=== PATIENT | male | born 1955 | race Caucasian/White ===

== ENCOUNTER 2017-04-11 | Inpatient (IN) | payer OTHER, MEDICAID ==
[2017-04-11] VITALS (7 sets, daily range): BP systolic 111–146
[~2017-04-11] VITALS: Ht 175.3 cm; Wt 70.8 kg
[2017-04-11] MEDS ORDERED: NACL 0.9% 1,000 ML IV ONE (00:18)
[2017-04-11 01:35] LABS: EOSINOPHILS # (AUTO) 0.3 K/uL (0.0-0.4); HEMOGLOBIN 9.7 g/dL (14.0-18.0); LYMPHOCYTES # (AUTO) 0.9 K/uL (1.0-5.5)
[2017-04-11 01:42] LABS: CALCIUM 8.7 mg/dL (8.4-11.0); CREATININE 1.88 mg/dL (0.55-1.30); POTASSIUM 3.4 mmol/L (3.5-5.1)
[2017-04-11 01:45] LABS: INR 1.2 (0.80-1.20); PROTHROMBIN TIME 12.6 SECS (9.5-12.5)
[2017-04-11 01:47] LABS: ALBUMIN 2.2 g/dL (3.4-4.8); TOTAL BILIRUBIN 0.9 mg/dL (0.0-1.0)
[2017-04-11 01:48] LABS: BASOPHILS % (AUTO) 0.2 % (0.0-2.0); HEMATOCRIT 28.5 % (36-54); LYMPHOCYTES % (AUTO) 6.1 % (20.5-51.5); MEAN CORPUSCULAR HEMOGLOBIN 32 pg (27-31); MEAN CORPUSCULAR HGB CONC 34 % (32-36); MEAN CORPUSCULAR VOLUME 95 fL (79.0-98.0); NEUTROPHILS # (AUTO) 12.2 K/uL (1.8-7.7); NEUTROPHILS % (AUTO) 78.7 % (40.0-70.0); PLATELET COUNT (AUTO) 152 K/uL (130-430); RED BLOOD CELL COUNT(AUTO) 3.01 MIL/uL (4.2-6.2); WHITE BLOOD COUNT (AUTO) 15.4 K/uL (4.8-10.8)
[2017-04-11] MEDS ORDERED: HYDROmorphone 1 MG INJ. 1 MG/ML AMPUL IVP ONE (02:15)
[2017-04-11 03:24] LABS: BILIRUBIN,URINE 1+ (NEGATIVE); BLOOD, URINE 3+ (NEGATIVE); CLARITY/URINE CLOUDY (CLEAR); COLOR,URINE YELLOW (YELLOW); GLUCOSE,URINE NEGATIVE (NEGATIVE); KETONES,URINE 1+ (NEGATIVE); LEUKOCYTE ESTERASE ,URINE 3+ (NEGATIVE); NITRITE, URINE POSITIVE (NEGATIVE); PROTEIN URINE 2+ (NEGATIVE)
[2017-04-11] MEDS ORDERED: ACETAMINOPHEN 325 MG TABLET PO PRN (03:30)
[2017-04-11 03:32] LABS: BACTERIA,URINE MANY /HPF (None Seen); WBC,URINE >100 /HPF (0-3)
[2017-04-11] MEDS ORDERED: DIPH25CA83 PO (07:01)
[2017-04-11] MEDS ORDERED: PRO20 PO (07:01)
[2017-04-11] MEDS ORDERED: ASPI-1063 PO (07:01)
[2017-04-11] MEDS ORDERED: QUET200T30 PO (07:01)
[2017-04-11] MEDS ORDERED: QUET200T5 PO (07:01)
[2017-04-11] MEDS ORDERED: OMEP20CA10 PO (07:01)
[2017-04-11] MEDS ORDERED: DOCU-144 PO (07:01)
[2017-04-11] MEDS ORDERED: DIVA250T34 PO (07:01)
[2017-04-11] MEDS ORDERED: TAMS0.4C96 PO (07:01)
[2017-04-11] MEDS ORDERED: [UNRECOGNIZED DRUG - CODE] PO (07:01)
[2017-04-11] MEDS ORDERED: TEMA30CA5 PO (07:01)
[2017-04-11] MEDS ORDERED: MONT10TA25 PO (07:01)
[2017-04-11] MEDS ORDERED: DIVALPROEX SODIUM 250 MG TABLET(DEPAKOTE) PO SCH (10:45)
[2017-04-11] MEDS ORDERED: LEVOFLOXACIN 500 MG/D5W 100 ML IV ONE (11:00)
[2017-04-11] MEDS: HYDROmorphone 1 MG INJ. 1 MG/ML AMPUL IVP PRN (11:10)
[2017-04-11] MEDS ORDERED: GENTAMICIN 100 mg/50 mL NS 50 ML IV ONE (11:30)
[2017-04-11] MEDS: LR 1,000 ML IV SCH ×2 (12:05→22:15)
[2017-04-11] MEDS ORDERED: OMEPRAZOLE 20 MG CAPSULE.DR (PriLOSEC) PO ONE (13:00)
[2017-04-11] MEDS ORDERED: DOCUSATE SODIUM 100 MG CAPSULE PO PRN (13:00)
[2017-04-11] MEDS ORDERED: MONTELUKAST 10 MG TABLET PO ONE (13:00)
[2017-04-11] MEDS ORDERED: FLUoxetine HCL 10 MG CAPSULE (PROzac) PO ONE (13:00)
[2017-04-11] MEDS ORDERED: DIVALPROEX SODIUM 250 MG TABLET(DEPAKOTE) PO ONE (13:00)
[2017-04-11] MEDS ORDERED: TAMSULOSIN HCL 0.4 MG CAP PO ONE (13:15)
[2017-04-11] MEDS: DOCUSATE SODIUM 100 MG CAPSULE PO SCH (13:17)
[2017-04-11] MEDS: FLUoxetine HCL 20 MG CAPSULE (PROzac) PO SCH (13:19)
[2017-04-11] MEDS: TAMSULOSIN HCL 0.4 MG CAP PO SCH ×2 (13:41→22:14)
[2017-04-11] MEDS: TEMAZEPAM 15 MG CAPSULE PO SCH (13:41)
[2017-04-11] MEDS: OMEPRAZOLE 20 MG CAPSULE.DR (PriLOSEC) PO SCH (13:42)
[2017-04-11] MEDS: MONTELUKAST 10 MG TABLET PO SCH ×2 (13:42→18:23)
[2017-04-11] MEDS: cefTRIAXone 1 GM in D5W 50 ML IV SCH (16:28)
[2017-04-11] MEDS: QUEtiapine FUMARATE 200 MG TAB.SR.24H PO SCH (21:00)
[2017-04-11] MEDS: DIVALPROEX SODIUM 250 MG TABLET(DEPAKOTE) PO SCH (22:14)
[2017-04-12 04:11] VITALS: BP_SYST 131
[2017-04-12 06:48] LABS: HEMATOCRIT 26.3 % (36-54); HEMOGLOBIN 8.9 g/dL (14.0-18.0); MEAN CORPUSCULAR HEMOGLOBIN 32 pg (27-31); MEAN CORPUSCULAR HGB CONC 34 % (32-36); MEAN CORPUSCULAR VOLUME 94 fL (79.0-98.0); PLATELET COUNT (AUTO) 177 K/uL (130-430); RED BLOOD CELL COUNT(AUTO) 2.79 MIL/uL (4.2-6.2); RED CELL DISTRIBUTION WIDTH 12.8 % (9.0-15.0)
[2017-04-12] MEDS: LR 1,000 ML IV SCH ×3 (06:48→23:45)
[2017-04-12 07:03] LABS: WHITE BLOOD COUNT (AUTO) 12.2 K/uL (4.8-10.8)
[2017-04-12 07:36] LABS: ALBUMIN 1.8 g/dL (3.4-4.8); CALCIUM 8.2 mg/dL (8.4-11.0); CREATININE 1.4 mg/dL (0.55-1.30); POTASSIUM 3.6 mmol/L (3.5-5.1); THYROID STIMULATING HORMONE 3.88 uIu/mL (0.34-4.82); TOTAL BILIRUBIN 0.5 mg/dL (0.0-1.0)
[2017-04-12 08:00] VITALS: BP_SYST 128
[2017-04-12 08:14] LABS: FREE T4 (FREE THYROXINE) 0.7 ng/dL (0.6-1.6)
[2017-04-12] MEDS: TAMSULOSIN HCL 0.4 MG CAP PO SCH ×2 (08:41→20:23)
[2017-04-12] MEDS: OMEPRAZOLE 20 MG CAPSULE.DR (PriLOSEC) PO SCH (08:41)
[2017-04-12] MEDS: DIVALPROEX SODIUM 250 MG TABLET(DEPAKOTE) PO SCH ×3 (08:42→20:24)
[2017-04-12] MEDS: ASPIRIN 81 MG TABLET(ECOTRIN) PO SCH (08:42)
[2017-04-12] MEDS: FLUoxetine HCL 20 MG CAPSULE (PROzac) PO SCH (08:42)
[2017-04-12] MEDS: DOCUSATE SODIUM 100 MG CAPSULE PO SCH (08:42)
[2017-04-12] MEDS: DIPHENHYDRAMINE HCL 25 MG CAPSULE PO SCH (08:42)
[2017-04-12] MEDS: HYDROmorphone 1 MG INJ. 1 MG/ML AMPUL IVP PRN (08:43)
[2017-04-12 09:08] LABS: ATYPICAL LYMPHOCYTES % 4 % (0-0); BAND % (MANUAL) 9 % (0-6); BASOPHILS % (MANUAL) 0 % (0-2); EOSINOPHILS % (MANUAL) 4 % (0-7); LYMPHOCYTES % (MANUAL) 10 % (20-46); METAMYELOCYTES % 1 % (0-0); MONOCYTES % (MANUAL) 16 % (0-11)
[2017-04-12 11:55] VITALS: BP_SYST 134
[2017-04-12] MEDS: cefTRIAXone 1 GM in D5W 50 ML IV SCH (14:22)
[2017-04-12] MEDS: TEMAZEPAM 15 MG CAPSULE PO SCH (14:23)
[2017-04-12] MEDS ORDERED: GENTAMICIN 100 mg/50 mL NS 50 ML IV ONE (17:00)
[2017-04-12 17:11] VITALS: BP_SYST 154
[2017-04-12] MEDS: MONTELUKAST 10 MG TABLET PO SCH (18:51)
[2017-04-12 20:00] VITALS: BP_SYST 130
[2017-04-12] MEDS: QUEtiapine FUMARATE 200 MG TAB.SR.24H PO SCH (20:23)
[2017-04-13 00:03] VITALS: BP_SYST 134
[2017-04-13 03:49] VITALS: BP_SYST 136
[2017-04-13 07:10] LABS: BASOPHILS % (AUTO) 0.1 % (0.0-2.0); EOSINOPHILS # (AUTO) 0.5 K/uL (0.0-0.4); EOSINOPHILS % (AUTO) 3.5 % (0.0-4.0); HEMATOCRIT 25.9 % (36-54); HEMOGLOBIN 8.7 g/dL (14.0-18.0); LYMPHOCYTES # (AUTO) 1.8 K/uL (1.0-5.5); LYMPHOCYTES % (AUTO) 14.1 % (20.5-51.5); MEAN CORPUSCULAR HEMOGLOBIN 32 pg (27-31); MEAN CORPUSCULAR HGB CONC 33 % (32-36); MEAN CORPUSCULAR VOLUME 94 fL (79.0-98.0); MONOCYTES # (AUTO) 2.1 K/uL (0.0-1.0); MONOCYTES % (AUTO) 16.2 % (1.7-9.3); NEUTROPHILS # (AUTO) 8.5 K/uL (1.8-7.7); NEUTROPHILS % (AUTO) 66.1 % (40.0-70.0); PLATELET COUNT (AUTO) 183 K/uL (130-430); RED BLOOD CELL COUNT(AUTO) 2.75 MIL/uL (4.2-6.2); RED CELL DISTRIBUTION WIDTH 12.8 % (9.0-15.0); WHITE BLOOD COUNT (AUTO) 12.9 K/uL (4.8-10.8)
[2017-04-13 07:15] LABS: CALCIUM 8.2 mg/dL (8.4-11.0); CREATININE 1.35 mg/dL (0.55-1.30); POTASSIUM 3.7 mmol/L (3.5-5.1)
[2017-04-13 07:54] LABS: TOTAL IRON BIND. CAPACITY 184 ug/dL (250-450)
[2017-04-13 08:25] VITALS: BP_SYST 118
[2017-04-13] MEDS: DOCUSATE SODIUM 100 MG CAPSULE PO SCH (08:41)
[2017-04-13] MEDS: OMEPRAZOLE 20 MG CAPSULE.DR (PriLOSEC) PO SCH (08:41)
[2017-04-13] MEDS: FLUoxetine HCL 20 MG CAPSULE (PROzac) PO SCH (08:42)
[2017-04-13] MEDS: DIVALPROEX SODIUM 250 MG TABLET(DEPAKOTE) PO SCH ×3 (08:42→21:04)
[2017-04-13] MEDS: ASPIRIN 81 MG TABLET(ECOTRIN) PO SCH (08:42)
[2017-04-13] MEDS: DIPHENHYDRAMINE HCL 25 MG CAPSULE PO SCH (08:42)
[2017-04-13] MEDS: TAMSULOSIN HCL 0.4 MG CAP PO SCH ×2 (08:42→21:04)
[2017-04-13 11:30] VITALS: BP_SYST 98
[2017-04-13] MEDS: cefTRIAXone 1 GM in D5W 50 ML IV SCH (13:40)
[2017-04-13] MEDS: LR 1,000 ML IV SCH ×2 (13:41→22:59)
[2017-04-13 16:40] VITALS: BP_SYST 144
[2017-04-13] MEDS ORDERED: EPOETIN ALFA 4,000 UNITS/ML VIAL SUBCUT ONE (18:00)
[2017-04-13] MEDS: MONTELUKAST 10 MG TABLET PO SCH (18:51)
[2017-04-13] MEDS: SOD FERRIC GLUC COMPLEX/SUC 125 MG in NS 100 ML IV SCH (18:52)
[2017-04-13 20:30] VITALS: BP_SYST 152
[2017-04-13] MEDS: QUEtiapine FUMARATE 200 MG TAB.SR.24H PO SCH (21:04)
[2017-04-13] MEDS: HYDROmorphone 1 MG INJ. 1 MG/ML AMPUL IVP PRN (21:05)
[2017-04-14 04:54] VITALS: BP_SYST 119; BP_SYST 139
[2017-04-14 06:19] LABS: EOSINOPHILS % (AUTO) 3.6 % (0.0-4.0); HEMOGLOBIN 8.3 g/dL (14.0-18.0); NEUTROPHILS # (AUTO) 10.6 K/uL (1.8-7.7)
[2017-04-14 06:21] LABS: CALCIUM 8.2 mg/dL (8.4-11.0); CREATININE 1.24 mg/dL (0.55-1.30); POTASSIUM 3.6 mmol/L (3.5-5.1)
[2017-04-14 06:32] LABS: BASOPHILS % (AUTO) 0.2 % (0.0-2.0); EOSINOPHILS # (AUTO) 0.5 K/uL (0.0-0.4); HEMATOCRIT 24.6 % (36-54); LYMPHOCYTES # (AUTO) 1.9 K/uL (1.0-5.5); LYMPHOCYTES % (AUTO) 12.5 % (20.5-51.5); MEAN CORPUSCULAR HEMOGLOBIN 32 pg (27-31); MEAN CORPUSCULAR HGB CONC 34 % (32-36); MEAN CORPUSCULAR VOLUME 94 fL (79.0-98.0); MONOCYTES # (AUTO) 2.2 K/uL (0.0-1.0); MONOCYTES % (AUTO) 14.3 % (1.7-9.3); NEUTROPHILS % (AUTO) 69.4 % (40.0-70.0); PLATELET COUNT (AUTO) 192 K/uL (130-430); RED BLOOD CELL COUNT(AUTO) 2.62 MIL/uL (4.2-6.2); RED CELL DISTRIBUTION WIDTH 12.8 % (9.0-15.0); WHITE BLOOD COUNT (AUTO) 15.2 K/uL (4.8-10.8)
[2017-04-14 08:00] VITALS: BP_SYST 137
[2017-04-14] MEDS: HYDROmorphone 1 MG INJ. 1 MG/ML AMPUL IVP PRN ×2 (08:54→21:04)
[2017-04-14] MEDS: DOCUSATE SODIUM 100 MG CAPSULE PO SCH (09:13)
[2017-04-14] MEDS: FLUoxetine HCL 20 MG CAPSULE (PROzac) PO SCH (09:13)
[2017-04-14] MEDS: DIPHENHYDRAMINE HCL 25 MG CAPSULE PO SCH (09:13)
[2017-04-14] MEDS: OMEPRAZOLE 20 MG CAPSULE.DR (PriLOSEC) PO SCH (09:14)
[2017-04-14] MEDS: TAMSULOSIN HCL 0.4 MG CAP PO SCH ×2 (09:14→21:06)
[2017-04-14] MEDS: DIVALPROEX SODIUM 250 MG TABLET(DEPAKOTE) PO SCH ×3 (09:14→21:06)
[2017-04-14] MEDS: ASPIRIN 81 MG TABLET(ECOTRIN) PO SCH (09:14)
[2017-04-14] MEDS: LR 1,000 ML IV SCH ×2 (09:18→21:06)
[2017-04-14] MEDS: PIPERACILLIN/TAZO 2.25G/DEX-IS 50 ML IV SCH ×2 (11:37→18:39)
[2017-04-14 11:45] VITALS: BP_SYST 118
[2017-04-14 17:33] VITALS: BP_SYST 121
[2017-04-14] MEDS: MONTELUKAST 10 MG TABLET PO SCH (18:39)
[2017-04-14] MEDS: SOD FERRIC GLUC COMPLEX/SUC 125 MG in NS 100 ML IV SCH (18:39)
[2017-04-14 20:30] VITALS: BP_SYST 140
[2017-04-14] MEDS: QUEtiapine FUMARATE 200 MG TAB.SR.24H PO SCH (21:48)
[2017-04-15 00:30] VITALS: BP_SYST 141
[2017-04-15] MEDS: PIPERACILLIN/TAZO 2.25G/DEX-IS 50 ML IV SCH ×4 (00:41→19:28)
[2017-04-15 04:40] VITALS: BP_SYST 111
[2017-04-15] MEDS: HYDROmorphone 1 MG INJ. 1 MG/ML AMPUL IVP PRN ×3 (04:55→14:33)
[2017-04-15] MEDS: LR 1,000 ML IV SCH ×2 (06:23→17:05)
[2017-04-15 08:32] VITALS: BP_SYST 120
[2017-04-15] MEDS: ASPIRIN 81 MG TABLET(ECOTRIN) PO SCH (09:00)
[2017-04-15] MEDS: DIVALPROEX SODIUM 250 MG TABLET(DEPAKOTE) PO SCH ×3 (10:08→21:19)
[2017-04-15] MEDS: TAMSULOSIN HCL 0.4 MG CAP PO SCH ×2 (10:08→21:18)
[2017-04-15] MEDS: FLUoxetine HCL 20 MG CAPSULE (PROzac) PO SCH (10:08)
[2017-04-15] MEDS: OMEPRAZOLE 20 MG CAPSULE.DR (PriLOSEC) PO SCH (10:08)
[2017-04-15] MEDS: DIPHENHYDRAMINE HCL 25 MG CAPSULE PO SCH (10:08)
[2017-04-15] MEDS: DOCUSATE SODIUM 100 MG CAPSULE PO SCH (10:08)
[2017-04-15 10:12] LABS: HEMOGLOBIN 8.4 g/dL (14.0-18.0); MEAN CORPUSCULAR HEMOGLOBIN 32 pg (27-31); MEAN CORPUSCULAR HGB CONC 34 % (32-36); MEAN CORPUSCULAR VOLUME 94 fL (79.0-98.0); PLATELET COUNT (AUTO) 221 K/uL (130-430); RED BLOOD CELL COUNT(AUTO) 2.64 MIL/uL (4.2-6.2); RED CELL DISTRIBUTION WIDTH 13.5 % (9.0-15.0); WHITE BLOOD COUNT (AUTO) 17.3 K/uL (4.8-10.8)
[2017-04-15 11:01] LABS: BAND % (MANUAL) 3 % (0-6); LYMPHOCYTES % (MANUAL) 13 % (20-46)
[2017-04-15 11:02] LABS: BASOPHILS % (MANUAL) 0 % (0-2); EOSINOPHILS % (MANUAL) 2 % (0-7); MONOCYTES % (MANUAL) 9 % (0-11)
[2017-04-15 12:41] VITALS: BP_SYST 122
[2017-04-15] MEDS ORDERED: EPOETIN ALFA 4,000 UNITS/ML VIAL SUBCUT ONE (14:00)
[2017-04-15] MEDS ORDERED: HYDROcodone/ACETAMIN 5-325 MG TAB (NORCO/ VICODIN) PO PRN (15:30)
[2017-04-15 16:52] VITALS: BP_SYST 122
[2017-04-15] MEDS: SOD FERRIC GLUC COMPLEX/SUC 125 MG in NS 100 ML IV SCH (17:09)
[2017-04-15] MEDS: MONTELUKAST 10 MG TABLET PO SCH (19:33)
[2017-04-15 20:00] VITALS: BP_SYST 144
[2017-04-15] MEDS: QUEtiapine FUMARATE 200 MG TAB.SR.24H PO SCH (21:18)
[2017-04-16] VITALS: BP_SYST 131
[2017-04-16] MEDS: HYDROmorphone 1 MG INJ. 1 MG/ML AMPUL IVP PRN (00:01)
[2017-04-16] MEDS: PIPERACILLIN/TAZO 2.25G/DEX-IS 50 ML IV SCH ×4 (00:04→17:44)
[2017-04-16 04:00] VITALS: BP_SYST 138
[2017-04-16] MEDS: LR 1,000 ML IV SCH ×2 (04:00→11:00)
[2017-04-16] MEDS ORDERED: POLYMYXIN 500,000/BACIT.10,000 UNITS in NS IRR 1 L IR ONE (08:12)
[2017-04-16] MEDS: TAMSULOSIN HCL 0.4 MG CAP PO SCH ×2 (08:37→21:57)
[2017-04-16] MEDS: DIVALPROEX SODIUM 250 MG TABLET(DEPAKOTE) PO SCH ×3 (08:37→21:57)
[2017-04-16] MEDS ORDERED: LR 1,000 ML IV SCH (10:04)
[2017-04-16] MEDS ORDERED: HYDROmorphone 1 MG INJ. 1 MG/ML AMPUL IVP PRN ×2 (10:15)
[2017-04-16] MEDS ORDERED: METOCLOPRAMIDE HCL 10 MG/2 ML VIAL IVP PRN (10:15)
[2017-04-16] MEDS ORDERED: HYDROmorphone 2 MG/ML VIAL IVP PRN (10:15)
[2017-04-16] MEDS ORDERED: ONDANSETRON HCL 4 MG/2 ML VIAL IVP PRN (10:45)
[2017-04-16] MEDS ORDERED: SENNOSIDES 8.6 MG TABLET PO PRN (10:45)
[2017-04-16] MEDS ORDERED: ACETAMINOPHEN 325 MG TABLET PO PRN (10:45)
[2017-04-16] MEDS ORDERED: DIPHENHYDRAMINE INJ 50 MG/ML VIAL IM PRN (10:45)
[2017-04-16] MEDS ORDERED: MILK OF MAGNESIA 30 ML UDC PO PRN (10:45)
[2017-04-16] MEDS ORDERED: MEPERIDINE HCL/PF 100 MG/ML AMP IM PRN (10:45)
[2017-04-16] MEDS ORDERED: DIPHENHYDRAMINE HCL 25 MG CAPSULE PO PRN (10:45)
[2017-04-16] MEDS ORDERED: HYDROmorphone 2 MG/ML VIAL ONE (11:04)
[2017-04-16 11:16] LABS: BASOPHILS # (AUTO) 0.1 K/uL (0.0-0.2); BASOPHILS % (AUTO) 0.3 % (0.0-2.0); EOSINOPHILS # (AUTO) 0.5 K/uL (0.0-0.4); EOSINOPHILS % (AUTO) 2.3 % (0.0-4.0); HEMATOCRIT 30.5 % (36-54); HEMOGLOBIN 10.1 g/dL (14.0-18.0); LYMPHOCYTES # (AUTO) 1.7 K/uL (1.0-5.5); LYMPHOCYTES % (AUTO) 7.3 % (20.5-51.5); MEAN CORPUSCULAR HEMOGLOBIN 31 pg (27-31); MEAN CORPUSCULAR HGB CONC 33 % (32-36); MEAN CORPUSCULAR VOLUME 92 fL (79.0-98.0); MONOCYTES # (AUTO) 2.2 K/uL (0.0-1.0); MONOCYTES % (AUTO) 9.7 % (1.7-9.3); NEUTROPHILS # (AUTO) 18.2 K/uL (1.8-7.7); PLATELET COUNT (AUTO) 206 K/uL (130-430); RED BLOOD CELL COUNT(AUTO) 3.32 MIL/uL (4.2-6.2); RED CELL DISTRIBUTION WIDTH 14.4 % (9.0-15.0); WHITE BLOOD COUNT (AUTO) 22.7 K/uL (4.8-10.8)
[2017-04-16 11:30] LABS: ALBUMIN 1.6 g/dL (3.4-4.8); CALCIUM 7.9 mg/dL (8.4-11.0); CREATININE 1.39 mg/dL (0.55-1.30); POTASSIUM 4.1 mmol/L (3.5-5.1); TOTAL BILIRUBIN 0.6 mg/dL (0.0-1.0)
[2017-04-16 11:45] VITALS: BP_SYST 119
[2017-04-16] MEDS ORDERED: CEFAZOLIN 1 GM IVPB PREMIX 50 ML IV SCH (12:00)
[2017-04-16] MEDS: DIPHENHYDRAMINE HCL 25 MG CAPSULE PO SCH (12:20)
[2017-04-16] MEDS: ASPIRIN 81 MG TABLET(ECOTRIN) PO SCH (12:20)
[2017-04-16] MEDS: DOCUSATE SODIUM 100 MG CAPSULE PO SCH ×2 (12:20→21:57)
[2017-04-16] MEDS: OMEPRAZOLE 20 MG CAPSULE.DR (PriLOSEC) PO SCH (12:20)
[2017-04-16] MEDS: FLUoxetine HCL 20 MG CAPSULE (PROzac) PO SCH (12:20)
[2017-04-16 12:24] LABS: NEUTROPHILS % (AUTO) 80.4 % (40.0-70.0)
[2017-04-16] MEDS: D5LR 1,000 ML IV SCH ×2 (12:35→22:02)
[2017-04-16] MEDS ORDERED: HYDROcodone/ACETAMIN 5-325 MG TAB (NORCO/ VICODIN) PO PRN (12:47)
[2017-04-16 16:06] VITALS: BP_SYST 119
[2017-04-16] MEDS: FLUCONAZOLE 100 mg/ NS 50 ML IV SCH (16:29)
[2017-04-16] MEDS ORDERED: VANCOMYCIN HCL 1,000 MG in NS 250 ML IV ONE (17:00)
[2017-04-16 17:08] LABS: BILIRUBIN,URINE NEGATIVE (NEGATIVE); BLOOD, URINE 3+ (NEGATIVE); CLARITY/URINE HAZY (CLEAR); COLOR,URINE YELLOW (YELLOW); GLUCOSE,URINE NEGATIVE (NEGATIVE); KETONES,URINE NEGATIVE (NEGATIVE); LEUKOCYTE ESTERASE ,URINE TRACE (NEGATIVE); NITRITE, URINE NEGATIVE (NEGATIVE); PROTEIN URINE TRACE (NEGATIVE)
[2017-04-16 17:13] LABS: RBC,URINE 50-80 /HPF (0-3)
[2017-04-16 17:14] LABS: BACTERIA,URINE MODERATE /HPF (None Seen)
[2017-04-16] MEDS: MONTELUKAST 10 MG TABLET PO SCH (17:43)
[2017-04-16] MEDS: SOD FERRIC GLUC COMPLEX/SUC 125 MG in NS 100 ML IV SCH (18:17)
[2017-04-16 20:05] VITALS: BP_SYST 143
[2017-04-16 20:20] VITALS: BP_SYST 143
[2017-04-16] MEDS: QUEtiapine FUMARATE 200 MG TAB.SR.24H PO SCH (21:56)
[2017-04-16] MEDS: FERROUS SULFATE 325 MG TABLET.DR PO SCH (21:57)
[2017-04-17] VITALS (8 sets, daily range): BP systolic 112–154
[2017-04-17] MEDS: PIPERACILLIN/TAZO 2.25G/DEX-IS 50 ML IV SCH ×6 (00:14→23:39)
[2017-04-17] MEDS: HYDROcodone/ACETAMIN 5-325 MG TAB (NORCO/ VICODIN) PO PRN ×3 (01:21→21:36)
[2017-04-17 06:24] LABS: BASOPHILS # (AUTO) 0.1 K/uL (0.0-0.2); BASOPHILS % (AUTO) 0.3 % (0.0-2.0); EOSINOPHILS # (AUTO) 0.1 K/uL (0.0-0.4); EOSINOPHILS % (AUTO) 0.3 % (0.0-4.0); HEMATOCRIT 24.8 % (36-54); HEMOGLOBIN 8.4 g/dL (14.0-18.0); LYMPHOCYTES # (AUTO) 1.7 K/uL (1.0-5.5); MEAN CORPUSCULAR HEMOGLOBIN 31 pg (27-31); MEAN CORPUSCULAR HGB CONC 34 % (32-36); MEAN CORPUSCULAR VOLUME 92 fL (79.0-98.0); MONOCYTES # (AUTO) 2.9 K/uL (0.0-1.0); MONOCYTES % (AUTO) 15.7 % (1.7-9.3); NEUTROPHILS # (AUTO) 13.7 K/uL (1.8-7.7); NEUTROPHILS % (AUTO) 74.7 % (40.0-70.0); PLATELET COUNT (AUTO) 177 K/uL (130-430); RED BLOOD CELL COUNT(AUTO) 2.68 MIL/uL (4.2-6.2); RED CELL DISTRIBUTION WIDTH 15.1 % (9.0-15.0); WHITE BLOOD COUNT (AUTO) 18.5 K/uL (4.8-10.8)
[2017-04-17 06:48] LABS: CALCIUM 7.9 mg/dL (8.4-11.0); CREATININE 1.45 mg/dL (0.55-1.30)
[2017-04-17] MEDS ORDERED: POLYMYXIN 500,000/BACIT.10,000 UNITS in NS IRR 1 L IR ONE (07:43)
[2017-04-17] MEDS: ASPIRIN 81 MG TABLET(ECOTRIN) PO SCH (08:39)
[2017-04-17] MEDS: ENOXAPARIN SODIUM 40 MG/0.4 ML SYRINGE SUBCUT SCH (08:39)
[2017-04-17] MEDS: TAMSULOSIN HCL 0.4 MG CAP PO SCH ×2 (08:40→21:35)
[2017-04-17] MEDS: FERROUS SULFATE 325 MG TABLET.DR PO SCH ×2 (08:40→21:35)
[2017-04-17] MEDS: DIPHENHYDRAMINE HCL 25 MG CAPSULE PO SCH (08:40)
[2017-04-17] MEDS: FLUoxetine HCL 20 MG CAPSULE (PROzac) PO SCH (08:40)
[2017-04-17] MEDS: OMEPRAZOLE 20 MG CAPSULE.DR (PriLOSEC) PO SCH (08:40)
[2017-04-17] MEDS: DIVALPROEX SODIUM 250 MG TABLET(DEPAKOTE) PO SCH ×3 (08:40→21:35)
[2017-04-17] MEDS: DOCUSATE SODIUM 100 MG CAPSULE PO SCH ×2 (08:40→21:34)
[2017-04-17] MEDS: D5LR 1,000 ML IV SCH ×2 (08:48→21:43)
[2017-04-17] MEDS: FLUCONAZOLE 100 mg/ NS 50 ML IV SCH (15:05)
[2017-04-17] MEDS: MONTELUKAST 10 MG TABLET PO SCH (17:51)
[2017-04-17] MEDS: SOD FERRIC GLUC COMPLEX/SUC 125 MG in NS 100 ML IV SCH (17:52)
[2017-04-17] MEDS: QUEtiapine FUMARATE 200 MG TAB.SR.24H PO SCH (21:37)
[2017-04-18] VITALS (8 sets, daily range): BP systolic 105–153
[2017-04-18] MEDS: D5LR 1,000 ML IV SCH ×3 (06:17→23:40)
[2017-04-18] MEDS: PIPERACILLIN/TAZO 2.25G/DEX-IS 50 ML IV SCH ×4 (06:18→23:42)
[2017-04-18 07:04] LABS: HEMOGLOBIN 7.8 g/dL (14.0-18.0); MEAN CORPUSCULAR HGB CONC 35 % (32-36); PLATELET COUNT (AUTO) 193 K/uL (130-430)
[2017-04-18 07:08] LABS: HEMATOCRIT 22.4 % (36-54); MEAN CORPUSCULAR HEMOGLOBIN 32 pg (27-31); MEAN CORPUSCULAR VOLUME 92 fL (79.0-98.0); RED BLOOD CELL COUNT(AUTO) 2.42 MIL/uL (4.2-6.2); RED CELL DISTRIBUTION WIDTH 15.2 % (9.0-15.0); WHITE BLOOD COUNT (AUTO) 14.4 K/uL (4.8-10.8)
[2017-04-18 07:21] LABS: CALCIUM 8.3 mg/dL (8.4-11.0); CREATININE 1.35 mg/dL (0.55-1.30); POTASSIUM 3.7 mmol/L (3.5-5.1)
[2017-04-18 08:21] LABS: BAND % (MANUAL) 4 % (0-6)
[2017-04-18 08:22] LABS: BASOPHILS % (MANUAL) 0 % (0-2); EOSINOPHILS % (MANUAL) 2 % (0-7); LYMPHOCYTES % (MANUAL) 9 % (20-46); MONOCYTES % (MANUAL) 11 % (0-11)
[2017-04-18] MEDS: DOCUSATE SODIUM 100 MG CAPSULE PO SCH ×2 (09:16→22:01)
[2017-04-18] MEDS: FERROUS SULFATE 325 MG TABLET.DR PO SCH ×2 (09:16→22:01)
[2017-04-18] MEDS: ASPIRIN 81 MG TABLET(ECOTRIN) PO SCH (09:16)
[2017-04-18] MEDS: DIPHENHYDRAMINE HCL 25 MG CAPSULE PO SCH (09:16)
[2017-04-18] MEDS: FLUoxetine HCL 20 MG CAPSULE (PROzac) PO SCH (09:16)
[2017-04-18] MEDS: DIVALPROEX SODIUM 250 MG TABLET(DEPAKOTE) PO SCH ×3 (09:17→22:00)
[2017-04-18] MEDS: ENOXAPARIN SODIUM 40 MG/0.4 ML SYRINGE SUBCUT SCH (09:17)
[2017-04-18] MEDS: OMEPRAZOLE 20 MG CAPSULE.DR (PriLOSEC) PO SCH (09:20)
[2017-04-18] MEDS: TAMSULOSIN HCL 0.4 MG CAP PO SCH ×2 (09:20→22:00)
[2017-04-18] MEDS: FLUCONAZOLE 100 mg/ NS 50 ML IV SCH (15:41)
[2017-04-18] MEDS: SOD FERRIC GLUC COMPLEX/SUC 125 MG in NS 100 ML IV SCH (18:25)
[2017-04-18] MEDS: MONTELUKAST 10 MG TABLET PO SCH (18:28)
[2017-04-18] MEDS: QUEtiapine FUMARATE 200 MG TAB.SR.24H PO SCH (22:24)
[2017-04-19] VITALS (7 sets, daily range): BP systolic 128–158
[2017-04-19] MEDS: PIPERACILLIN/TAZO 2.25G/DEX-IS 50 ML IV SCH ×2 (06:35→12:30)
[2017-04-19] MEDS: HYDROcodone/ACETAMIN 5-325 MG TAB (NORCO/ VICODIN) PO PRN (06:44)
[2017-04-19 06:46] LABS: BASOPHILS % (AUTO) 0.3 % (0.0-2.0); EOSINOPHILS # (AUTO) 0.2 K/uL (0.0-0.4); EOSINOPHILS % (AUTO) 1.8 % (0.0-4.0); HEMATOCRIT 26.9 % (36-54); HEMOGLOBIN 8.9 g/dL (14.0-18.0); LYMPHOCYTES # (AUTO) 1.6 K/uL (1.0-5.5); LYMPHOCYTES % (AUTO) 13.5 % (20.5-51.5); MEAN CORPUSCULAR HEMOGLOBIN 31 pg (27-31); MEAN CORPUSCULAR HGB CONC 33 % (32-36); MEAN CORPUSCULAR VOLUME 93 fL (79.0-98.0); MONOCYTES # (AUTO) 2.2 K/uL (0.0-1.0); MONOCYTES % (AUTO) 18.9 % (1.7-9.3); NEUTROPHILS # (AUTO) 7.9 K/uL (1.8-7.7); NEUTROPHILS % (AUTO) 65.5 % (40.0-70.0); PLATELET COUNT (AUTO) 215 K/uL (130-430); RED CELL DISTRIBUTION WIDTH 15.2 % (9.0-15.0)
[2017-04-19 06:56] LABS: CALCIUM 8.6 mg/dL (8.4-11.0); CREATININE 1.29 mg/dL (0.55-1.30); POTASSIUM 3.4 mmol/L (3.5-5.1)
[2017-04-19 06:57] LABS: WHITE BLOOD COUNT (AUTO) 11.9 K/uL (4.8-10.8)
[2017-04-19] MEDS: ENOXAPARIN SODIUM 40 MG/0.4 ML SYRINGE SUBCUT SCH (08:22)
[2017-04-19] MEDS: DIVALPROEX SODIUM 250 MG TABLET(DEPAKOTE) PO SCH ×3 (08:23→21:21)
[2017-04-19] MEDS: FLUoxetine HCL 20 MG CAPSULE (PROzac) PO SCH (08:23)
[2017-04-19] MEDS: OMEPRAZOLE 20 MG CAPSULE.DR (PriLOSEC) PO SCH (08:23)
[2017-04-19] MEDS: FERROUS SULFATE 325 MG TABLET.DR PO SCH ×2 (08:23→21:21)
[2017-04-19] MEDS: DIPHENHYDRAMINE HCL 25 MG CAPSULE PO SCH (08:23)
[2017-04-19] MEDS: TAMSULOSIN HCL 0.4 MG CAP PO SCH ×2 (08:23→21:21)
[2017-04-19] MEDS: ASPIRIN 81 MG TABLET(ECOTRIN) PO SCH (08:23)
[2017-04-19] MEDS: DOCUSATE SODIUM 100 MG CAPSULE PO SCH ×2 (08:23→21:21)
[2017-04-19] MEDS: D5LR 1,000 ML IV SCH ×2 (08:39→21:20)
[2017-04-19] MEDS ORDERED: POTASSIUM CHLORIDE 20 MEQ TAB.PRT.SR PO ONE (14:00)
[2017-04-19] MEDS: FLUCONAZOLE 100 mg/ NS 50 ML IV SCH (15:26)
[2017-04-19] MEDS: SOD FERRIC GLUC COMPLEX/SUC 125 MG in NS 100 ML IV SCH (17:15)
[2017-04-19] MEDS: MONTELUKAST 10 MG TABLET PO SCH (17:15)
[2017-04-19] MEDS: CEFEPIME 1 GM in D5W 50 ML IV SCH (21:20)
[2017-04-19] MEDS: QUEtiapine FUMARATE 200 MG TAB.SR.24H PO SCH (21:21)
[2017-04-20 03:18] VITALS: BP_SYST 153
[2017-04-20 07:15] LABS: HEMATOCRIT 26.5 % (36-54); HEMOGLOBIN 8.9 g/dL (14.0-18.0); MEAN CORPUSCULAR HEMOGLOBIN 32 pg (27-31); MEAN CORPUSCULAR HGB CONC 34 % (32-36); MEAN CORPUSCULAR VOLUME 94 fL (79.0-98.0); PLATELET COUNT (AUTO) 252 K/uL (130-430); RED BLOOD CELL COUNT(AUTO) 2.83 MIL/uL (4.2-6.2); RED CELL DISTRIBUTION WIDTH 15.7 % (9.0-15.0)
[2017-04-20 07:36] LABS: CALCIUM 8.6 mg/dL (8.4-11.0); CREATININE 1.28 mg/dL (0.55-1.30); POTASSIUM 3.7 mmol/L (3.5-5.1)
[2017-04-20 08:21] LABS: WHITE BLOOD COUNT (AUTO) 8.4 K/uL (4.8-10.8)
[2017-04-20 08:25] VITALS: BP_SYST 153
[2017-04-20] MEDS: TAMSULOSIN HCL 0.4 MG CAP PO SCH (09:19)
[2017-04-20] MEDS: DIPHENHYDRAMINE HCL 25 MG CAPSULE PO SCH (09:20)
[2017-04-20] MEDS: OMEPRAZOLE 20 MG CAPSULE.DR (PriLOSEC) PO SCH (09:20)
[2017-04-20] MEDS: FLUoxetine HCL 20 MG CAPSULE (PROzac) PO SCH (09:20)
[2017-04-20] MEDS: FERROUS SULFATE 325 MG TABLET.DR PO SCH (09:20)
[2017-04-20] MEDS: ASPIRIN 81 MG TABLET(ECOTRIN) PO SCH (09:20)
[2017-04-20] MEDS: DIVALPROEX SODIUM 250 MG TABLET(DEPAKOTE) PO SCH ×3 (09:20→17:56)
[2017-04-20] MEDS: DOCUSATE SODIUM 100 MG CAPSULE PO SCH (09:20)
[2017-04-20] MEDS: CEFEPIME 1 GM in D5W 50 ML IV SCH (09:21)
[2017-04-20] MEDS: ENOXAPARIN SODIUM 40 MG/0.4 ML SYRINGE SUBCUT SCH (09:21)
[2017-04-20] MEDS: D5LR 1,000 ML IV SCH ×2 (09:21→14:27)
[2017-04-20 10:21] LABS: ATYPICAL LYMPHOCYTES % 0 % (0-0); BAND % (MANUAL) 0 % (0-6); BASOPHILS % (MANUAL) 0 % (0-2); EOSINOPHILS % (MANUAL) 7 % (0-7); LYMPHOCYTES % (MANUAL) 15 % (20-46); MONOCYTES % (MANUAL) 22 % (0-11)
[2017-04-20] MEDS: HYDROcodone/ACETAMIN 5-325 MG TAB (NORCO/ VICODIN) PO PRN ×2 (10:54→17:42)
[2017-04-20 11:36] VITALS: BP_SYST 152
[2017-04-20 16:20] VITALS: BP_SYST 126
[2017-04-20] MEDS: FLUCONAZOLE 100 mg/ NS 50 ML IV SCH (16:42)
[2017-04-20 17:11] VITALS: BP_SYST 126
== END 2017-04-20 18:31 | DRG 853 ==
LOC: SED → SMU 03:26
PROVIDERS: ADMIT Internal Medicine; ATTEND Internal Medicine
PROC: 30233N1 Transfusion of Nonautologous Red Blood Cells into Peripheral Vein, Percutaneous Approach (ICD-10-PCS; 2017-04-16)
PROC: 0QS706Z Reposition Left Upper Femur with Intramedullary Internal Fixation Device, Open Approach (ICD-10-PCS; principal; 2017-04-16 08:00)
DX: A41.9 Sepsis, unspecified organism (principal); S72.142A Displaced intertrochanteric fracture of left femur, initial encounter for closed fracture; N17.0 Acute kidney failure with tubular necrosis; J69.0 Pneumonitis due to inhalation of food and vomit; E43 Unspecified severe protein-calorie malnutrition; E11.9 Type 2 diabetes mellitus without complications; D64.9 Anemia, unspecified; N39.0 Urinary tract infection, site not specified; W18.39XA Other fall on same level, initial encounter; F32.9 Major depressive disorder, single episode, unspecified; F41.9 Anxiety disorder, unspecified; N45.2 Orchitis; F03.90 Unspecified dementia, unspecified severity, without behavioral disturbance, psychotic disturbance, mood disturbance, and anxiety; E07.9 Disorder of thyroid, unspecified; F79 Unspecified intellectual disabilities; N40.0 Benign prostatic hyperplasia without lower urinary tract symptoms; I10 Essential (primary) hypertension; K21.9 Gastro-esophageal reflux disease without esophagitis; J44.9 Chronic obstructive pulmonary disease, unspecified; Z68.23 Body mass index [BMI] 23.0-23.9, adult; Z86.73 Personal history of transient ischemic attack (TIA), and cerebral infarction without residual deficits; Z95.0 Presence of cardiac pacemaker; Z79.82 Long term (current) use of aspirin; Z90.49 Acquired absence of other specified parts of digestive tract; Y93.89 Activity, other specified; Y92.89 Other specified places as the place of occurrence of the external cause; Y99.8 Other external cause status
CPT/HCPCS: 36415; 71010; 71100; 72170-TC; 73502; 76001; 76770; 76870-TC; 80048; 80053; 80061; 81000-TC; 82150-TC; 82306; 83540-TC; 83550-TC; 83605; 83690-TC; 84439; 84443-TC; 85007; 85025; 85027; 85610-TC; 85730-TC; 86886; 86900; 86901; 86920; 87040-TC; 87081; 87086; 87186-TC; 92610-GN; 93005; 93306; 94010; 96361; 96374; 97116-GP; 97530-GP; 99285; C1713; C1769; J0690; J0692; J0696; J0885; J1170; J1450; J1580; J1650; J1956; J2543; J2916; J3370; J7030; J7050; J7060; J7120; P9021; Q0163

== ENCOUNTER 2017-09-12 16:15 | Emergency (ER) | payer OTHER, MEDICAID ==
[~2017-09-12] VITALS: Ht 152.4 cm; Wt 79.8 kg
[~2017-09-12 16:15] MED LIST: ASPI-1063 PO; DIPH25CA83 PO; DIVA250T34 PO; DOCU-144 PO; MONT10TA25 PO; OMEP20CA10 PO; PRO20 PO; QUET200T30 PO; QUET200T5 PO; TAMS0.4C96 PO; TEMA30CA5 PO; [UNRECOGNIZED DRUG - CODE] PO
[2017-09-12 16:34] VITALS: BP_SYST 143
[2017-09-12 17:18] LABS: BASOPHILS % (AUTO) 0.7 % (0.0-2.0); EOSINOPHILS # (AUTO) 0.3 K/uL (0.0-0.4); EOSINOPHILS % (AUTO) 4.9 % (0.0-4.0); HEMATOCRIT 35.5 % (36-54); HEMOGLOBIN 12.1 g/dL (14.0-18.0); LYMPHOCYTES % (AUTO) 36.8 % (20.5-51.5); MEAN CORPUSCULAR HEMOGLOBIN 33 pg (27-31); MEAN CORPUSCULAR HGB CONC 34 % (32-36); MEAN CORPUSCULAR VOLUME 98 fL (79.0-98.0); MONOCYTES # (AUTO) 0.7 K/uL (0.0-1.0); MONOCYTES % (AUTO) 13.1 % (1.7-9.3); NEUTROPHILS # (AUTO) 2.3 K/uL (1.8-7.7); NEUTROPHILS % (AUTO) 44.5 % (40.0-70.0); PLATELET COUNT (AUTO) 106 K/uL (130-430); RED BLOOD CELL COUNT(AUTO) 3.64 MIL/uL (4.2-6.2); WHITE BLOOD COUNT (AUTO) 5.4 K/uL (4.8-10.8)
--- NOTE | 2017-09-12 19:28 | NUR ---
Placed in room 05 . Placed on [employer], blood pressure machine and pulse oximeter. To gown for exam. Side rails up.
--- NOTE | 2017-09-12 19:40 | NUR ---
Pt's caregiver stated that he has been bright red blood during for about a week. Pt states he is in no pain at this time. Will continue to monitor. No distress noted.
--- NOTE | 2017-09-12 20:02 | NUR ---
ER at bedside examining patient.
--- NOTE | 2017-09-12 20:05 | NUR ---
Accompanied Dr. Paige to perform rectal exam. Pt tolerated well
[2017-09-12] MEDS ORDERED: NS 500 ML IV SCH (20:28)
[2017-09-12 21:00] LABS: CALCIUM 9.2 mg/dL (8.4-11.0); CREATININE 0.96 mg/dL (0.55-1.30); POTASSIUM 4.1 mmol/L (3.5-5.1)
[2017-09-12 21:04] LABS: ALBUMIN 3.3 g/dL (3.4-4.8); TOTAL BILIRUBIN 0.3 mg/dL (0.0-1.0)
[2017-09-12 22:29] VITALS: BP_SYST 143
--- NOTE | 2017-09-12 22:29 | NUR ---
Patient given written and verbal discharge instructions and verbalizes understanding. ER MD CHASE discussed with patient the results and treatment provided. Patient in stable condition. ID arm band removed. Rx of MILK OF MAGNESIA AND FLAGYL given. Patient educated on pain management and to follow up with PMD. Pain Scale 0/10. Opportunity for questions provided and answered.
== END 2017-09-12 22:29 | disposition home or self-care (01) ==
LOC: SED 16:15
DX: K62.89 Other specified diseases of anus and rectum (principal); K56.41 Fecal impaction; Z86.73 Personal history of transient ischemic attack (TIA), and cerebral infarction without residual deficits; Z86.59 Personal history of other mental and behavioral disorders; Z96.642 Presence of left artificial hip joint; Z79.82 Long term (current) use of aspirin; Z79.899 Other long term (current) drug therapy
CPT/HCPCS: 36415; 80053; 85025; 86886; 86900; 86901; 99285